=== PATIENT | male | born 1925 | race Caucasian/White ===

== ENCOUNTER → 2017-01-05 | Outpatient (CLI) | payer MEDICARE ==
[~2017-01-05] MED LIST: AMLODIPINE BESYL5 MG PO; ASPIRIN81 M1 PO; CYCLOBENZAPRINE10 MG PO; DOXYCYCLINE100 M3 PO; FINASTERIDE5 M1 PO; GLIPIZIDE5 MG PO; HUMALOG100 U/ML SC; HUMULIN R100 U/ML SC; LEVAQUIN500 M2 PO; LEVEMIR10 ML SC; LISINOPRIL5 MG PO; OMEPRAZOLE20 M2 PO; SIMVASTATIN5 MG PO; TAMSULOSIN HCL0.4 MG PO; VITAMIN B121000 MC1 PO; VITAMIN D31000 IU PO; [UNRECOGNIZED DRUG - OTHER] SC
[2017-01-05 14:57] LABS: BILIRUBIN NEGATIVE (NEGATIVE); BLOOD 1+ (NEGATIVE); CLARITY CLEAR (CLEAR); COLOR YELLOW (YELLOW); GLUCOSE NEGATIVE (NEGATIVE); KETONE NEGATIVE (NEGATIVE); LEUKO ESTERASE NEGATIVE (NEGATIVE); NITRITE NEGATIVE (NEGATIVE); PH 5.5 (5.0-9.0); PROTEIN 3+ (NEGATIVE); SPECIFIC GRAVITY 1.025 (1.005-1.030); UROBILINOGEN 0.2 E.U./dl (0.2-1.0)
[2017-01-05 14:58] LABS: BASO % 0.5 % (0.0-1.0); EOS # 0.1 10*3/uL (0.0-0.4); EOS % 1.3 % (1.0-4.0); HEMATOCRIT 41.6 % (42.0-52.0); HEMOGLOBIN 13.3 g/dl (14.0-18.0); LYMPH # 2.3 10*3/uL (1.3-4.4); LYMPH % 28.3 % (27.0-41.0); MEAN CELL VOLUME 89.5 fl (80.0-94.0); MEAN CORPUSCULAR HGB 28.6 pg (27.0-31.0); MEAN PLATELET VOLUME 11.1 fl (9.6-12.3); MONO # 0.7 10*3/uL (0.1-1.0); MONO % 8.8 % (3.0-9.0); NEUT % 60.7 % (47.0-73.0); PLATELET COUNT AUTOMATED 196 10*3/uL (130-400); RED BLOOD COUNT 4.65 10*6/uL (4.50-5.90); RED CELL DISTRI WIDTH 14.8 % (0-14.5); WHITE BLOOD COUNT 8.2 10*3/uL (4.8-10.8)
[2017-01-05 15:13] LABS: URINE TP/CRE RATIO 3.4 (<0.21)
[2017-01-05 15:23] LABS: POTASSIUM 4.1 mmol/L (3.5-5.1)
[2017-01-05 16:01] LABS: PTH INTACT 127.5 pg/mL (14.0-72.0); VITAMIN D, 25-HYDROXY 31.5 ng/mL (30-100)
== END | disposition home or self-care (01) ==
LOC: LAB 14:01
PROVIDERS: Internal Medicine Nephrology
DX: N18.3 Chronic kidney disease, stage 3 (moderate) (principal); E55.9 Vitamin D deficiency, unspecified; N25.81 Secondary hyperparathyroidism of renal origin; R80.9 Proteinuria, unspecified